=== PATIENT | female | born 1980 | race Caucasian/White ===

== ENCOUNTER 2018-03-23 07:00 | Day surgery (SDC) | payer OTHER ==
[~2018-03-23] VITALS: Ht 170.2 cm; Wt 70.3 kg
[2018-03-24] MEDS ORDERED: IBUPROFEN800 MG PO (06:58)
== END 2018-03-24 06:54 | disposition home or self-care (01) ==
LOC: CIR.AMB 07:00 → O/R 08:00 → SURH 08:00 → EDSTATUS 08:15 → SURH 08:15 → O/R 13:47 → OB/GYN 13:47 → CIR.AMB 03-24 06:54 → O/R 03-24 09:02 → OB/GYN 03-24 09:02
DX: N80.0 Endometriosis of uterus (principal); N92.0 Excessive and frequent menstruation with regular cycle